=== PATIENT | female | born 1950 | race Caucasian/White ===

== ENCOUNTER → 2019-05-18 | Outpatient (CLI) | payer MEDICARE, BC ==
--- NOTE | 2019-05-18 19:26 | BD ---
EXAMINATION TYPE: Axial Bone Density DATE OF EXAM: 05/18/2019 COMPARISON: NONE CLINICAL HISTORY: 68-year-old female postmenopausal screening Height: 62.5 Weight: 129 FRAX RISK QUESTIONS: Alcohol (3 or more units per day): no Family History (Parent hip fracture): no Glucocorticoids (More than 3mos): no (Ex: prednisone, prednisolone, methylprednisolone, dexamethasone, and hydrocortisone). History of Fracture in Adulthood: no Secondary Osteoporosis: 1. Type 1 Diabetes: no 2. Hyperthyroidism: no 3. Menopause before 45: no 4. Malnutrition: no 5. Chronic liver disease: no Rheumatoid Arthritis: no Current Tobacco Use: no RISK FACTORS HISTORY OF: Family History of Osteoporosis: no Active: yes Diet low in dairy products/other sources of calcium: no Postmenopausal woman: yes Take estrogen and/or progesterone medications: no Lost more than 2 inches in height since high school: no Frequent falls: no Poor Health: no Hyperparathyroidism: no Adrenal Insufficiency: no MEDICATIONS: Prednisone or other steroids: no Thyroid Medications: no Osteoporosis Medications: no Additional Medications: none Additional History: none to note EXAM MEASUREMENTS: Bone mineral densitometry was performed using the [employer] System. Bone mineral density as measured about the Lumbar spine is: ----- L1-L4(G/cm2): 1.035 T Score Values are as follows: ----- L2: -0.3 ----- L3: -0.5 ----- L4: -1.9 ----- L1-L4: -1.2 Bone mineral density not previously done at this facility; done elsewhere Bone mineral density about the R hip (g/cm2): 0.786 Bone mineral density about the L hip (g/cm2): 0.751 T Score values are as follows: -----R Neck: -1.8 -----L Neck: -2.1 -----R Total: -1.4 -----L Total: -1.7 Bone mineral density not previously done at this facility, done elsewhere IMPRESSION: Osteopenia (T Score between -2.5 and -1). There is slightly increased risk of fracture and the patient may be considered for treatment. Re-Screen 2-5 years. NOTE: T-SCORE=SD OF THE YOUNG ADULT MEAN.
--- NOTE | 2019-05-19 11:24 | MM ---
Reason for exam: screening (asymptomatic). Last mammogram was performed 3 years and 11 months ago. History: Family history of breast cancer in paternal aunt at age 50. Benign cyst aspiration of the left breast, 1972. Physical Findings: A clinical breast exam by your physician is recommended on an annual basis and results should be correlated with mammographic findings. MG 3D Screening Mammo W/Cad Bilateral CC and MLO view(s) were taken. Prior study comparison: June 17, 2015, mammogram, performed at [facility]. April 15, 2014, mammogram, performed at [facility]. The breast tissue is heterogeneously dense. This may lower the sensitivity of mammography. Finding: There are typically benign dystrophic calcifications in the right breast. There is a chronic nodularity in the right breast. There is no discrete abnormality. ASSESSMENT: Benign, BI-RAD 2 RECOMMENDATION: Routine screening mammogram of both breasts in 1 year.
== END | disposition home or self-care (01) ==
LOC: RADMAMWWP 06:57
PROVIDERS: ATTEND Family Medicine
DX: Z12.31 Encounter for screening mammogram for malignant neoplasm of breast (principal); M85.80 Other specified disorders of bone density and structure, unspecified site; Z78.0 Asymptomatic menopausal state; Z13.820 Encounter for screening for osteoporosis
CPT/HCPCS: 77063; 77067; 77080

== ENCOUNTER → 2019-06-04 | Outpatient (CLI) | payer MEDICARE, BC ==
--- NOTE | 2019-06-04 14:44 | CT ---
EXAMINATION TYPE: CT abdomen pelvis wo/w con DATE OF EXAM: 06/04/2019 COMPARISON: 04/03/2016 HISTORY: 68-year-old female Gross hematuria TECHNIQUE: Contiguous axial scanning of the abdomen and pelvis before and after administration of 100 ml Isovue 300 IV contrast. Delayed images through the kidneys and coronal/sagittal reconstructions performed. CT DLP: 1458 mGycm Automated exposure control for dose reduction was used. FINDINGS: Heart normal size without pericardial effusion. Lung bases clear without pleural effusion. Mild circumferential wall thickening distal esophagus. Subcentimeter hypodensity anterior mid liver and also peripheral left liver lobe too small for accura te CT characterization, likely cysts. Portal venous system is patent. Mildly dilated bile duct at 1 cm likely secondary to postcholecystectomy status. Mild diffuse thickening of the left adrenal gland without discrete nodularity, unchanged from prior. 7 mm subcentimeter cortical hypodensity lateral right kidney and 5 mm tiny hypodensity posterior uppe r pole left kidney. Both too small fracture CT characterization, probable tiny cysts. Punctate 2 mm nonobstructive right upper to midpole renal calculus. At the left UPJ, there is a 5 mm calcification not seen previously. The delayed kidney images show sa tisfactory contrast passage into the ureter. No dilated small bowel, free fluid, or free air. No mesenteric or retroperitoneal lymphadenopathy. Appendix not seen. Scattered moderate stool. Oral contrast progressed to the hepatic flexure. No cody colonic inflammatory change. Bladder partially distended. Uterus surgically absent. Ovaries are visualized with a 9 mm cyst in the right ovary. Multiple pelvic phleboliths. Bones: Mild degenerative changes at the hips. Facet arthropathy mid to lower lumbar spine with associ ated degenerative disc disease. IMPRESSION: 1. 5 MM LEFT UPJ CALCULUS. No significant obstructive uropathy at this time. 2. Additional punctate 2 mm nonobstructive right-sided renal calculus. 3. Mild circumferential wall thickening distal esophagus may be secondary to nondistention or esophag itis. Clinically correlate. 4. Moderate stool burden.
== END | disposition home or self-care (01) ==
LOC: RADCTMAIN 12:27
PROVIDERS: ATTEND Family Medicine
DX: N20.1 Calculus of ureter (principal); N20.0 Calculus of kidney; K22.8 Other specified diseases of esophagus; R31.0 Gross hematuria
CPT/HCPCS: 82565; 84520; 74178; 36415; Q9967

== ENCOUNTER → 2019-08-11 | Outpatient (CLI) | payer MEDICARE, BC ==
--- NOTE | 2019-08-11 08:13 | US ---
EXAMINATION TYPE: US kidneys/renal and bladder DATE OF EXAM: 08/11/2019 COMPARISON: Noncontrast CT 06/04/2019 CLINICAL HISTORY: N20.0 Calculus of kidney. Hx renal stones. EXAM MEASUREMENTS: Right Kidney: 8.4 x 4.7 x 4.0 cm Left Kidney: 8.0 x 4.9 x 5.0 cm Right Kidney: Lateral hypoechoic appearing lesion in renal cortex- 0.8 x 0.6 x 0.6 cm . Tiny punctate right renal calcification with no obstruction. Left Kidney: Hydronephrosis visualized Bladder: distended, anechoic Right jet seen . IMPRESSION: 1. Moderate left hydronephrosis. 2. Hypoechoic nodule right kidney too small to characterize but statistically most likely related to a cyst. 3. Tiny nonobstructing right renal calculus.
== END | disposition home or self-care (01) ==
LOC: RADUSWWP 07:25
PROVIDERS: ATTEND Surgery
DX: N13.30 Unspecified hydronephrosis (principal); N28.89 Other specified disorders of kidney and ureter; N20.0 Calculus of kidney
CPT/HCPCS: 74018; 76770

== ENCOUNTER → 2019-08-11 | Outpatient (CLI) | payer MEDICARE, BC ==
--- NOTE | 2019-08-11 08:31 | XR ---
KUB HISTORY: Status post lithotripsy, left-sided kidney stone Frontal KUB and [address] 06/04/2019 Suspect there is a calcification at the level of the L3 transverse process showing a cephalad to caud al dimension of 7 mm. There is an underlying scoliosis, degenerative disc change in the visualized sp ine. Multiple phleboliths are present within the pelvis. Difficult to exclude a distal ureteral calcu lester. No evident pneumoperitoneum or bowel obstruction. There is overlying artifact. IMPRESSION: There may be left ureteral calculus as described.
== END | disposition home or self-care (01) ==
LOC: RADXRMAIN 07:20
PROVIDERS: ATTEND Surgery
DX: N20.0 Calculus of kidney (principal); Z98.890 Other specified postprocedural states
CPT/HCPCS: 74018

== ENCOUNTER → 2020-09-09 | Outpatient (CLI) | payer MEDICARE, BC ==
--- NOTE | 2020-09-12 09:43 | MM ---
Reason for exam: screening (asymptomatic). Last mammogram was performed 1 year and 4 months ago. History: Family history of breast cancer in paternal aunt at age 50. Benign cyst aspiration of the left breast, 1972. Physical Findings: A clinical breast exam by your physician is recommended on an annual basis and results should be correlated with mammographic findings. MG 3D Screening Mammo W/Cad Bilateral CC and MLO view(s) were taken. Prior study comparison: May 18, 2019, bilateral MG 3d screening mammo w/cad. June 17, 2015, mammogram, performed at [facility]. The breast tissue is heterogeneously dense. This may lower the sensitivity of mammography. Finding #1: There is a 6 mm circumscribed oval mass located 7 cm from the nipple in the lower quadrant, middle position of the right breast. Finding #2: There are typically benign round calcifications in the anterior position of the left breast. New finding since May 18, 2019 and June 17, 2015. ASSESSMENT: Incomplete: need additional imaging evaluation, BI-RAD 0 RECOMMENDATION: Ultrasound of the right breast. [facility] will attempt to contact patient to return for ultrasound.
== END | disposition home or self-care (01) ==
LOC: RADMAMWWP 08:07
PROVIDERS: ATTEND Family Medicine
DX: Z12.31 Encounter for screening mammogram for malignant neoplasm of breast (principal)
CPT/HCPCS: 77063; 77067

== ENCOUNTER → 2020-09-15 | Outpatient (CLI) | payer MEDICARE, BC ==
--- NOTE | 2020-09-15 09:31 | USB ---
Reason for exam: additional evaluation requested from abnormal screening. History: Family history of breast cancer in paternal aunt at age 50. Benign cyst aspiration of the left breast, 1972. Benign excisional biopsy of the left breast. Physical Findings: Nurse did not find any significant physical abnormalities on exam. US Breast Workup Limited RT Right limited breast ultrasound including focal area of concern, retroareolar and axilla demonstrates a 5 x 3 x 5mm oval, lobular, cystic lesion at 8 o'clock and dilated duct at the posterior nipple. These results were verbally communicated with the patient and result sheet given to the patient on 09/15/20. ASSESSMENT: Benign, BI-RAD 2 RECOMMENDATION: Return to routine screening mammogram schedule for both breasts.
== END | disposition home or self-care (01) ==
LOC: RADUSWWP 07:21
PROVIDERS: ATTEND Family Medicine
DX: R92.8 Other abnormal and inconclusive findings on diagnostic imaging of breast (principal)

== ENCOUNTER → 2021-10-06 | Outpatient (CLI) | payer MEDICARE, BC ==
--- NOTE | 2021-10-10 09:05 | MM ---
Reason for exam: screening (asymptomatic). Last mammogram was performed 1 year and 1 month ago. History: Patient is postmenopausal. Family history of breast cancer in paternal aunt at age 50. Benign cyst aspiration of the left breast, 1972. Benign excisional biopsy of the left breast. Physical Findings: A clinical breast exam by your physician is recommended on an annual basis and results should be correlated with mammographic findings. MG 3D Screening Mammo W/Cad Bilateral CC and MLO view(s) were taken. XCCL view(s) were taken of the right breast. Prior study comparison: September 09, 2020, bilateral MG 3d screening mammo w/cad. May 18, 2019, bilateral MG 3d screening mammo w/cad. There are scattered fibroglandular densities. Stable superior left MLO asymmetric density. No significant changes when compared with prior studies. ASSESSMENT: Benign, BI-RAD 2 RECOMMENDATION: Routine screening mammogram of both breasts in 1 year.
== END | disposition home or self-care (01) ==
LOC: RADMAMWWP 12:23
PROVIDERS: ATTEND Family Medicine
DX: Z12.31 Encounter for screening mammogram for malignant neoplasm of breast (principal); Z78.0 Asymptomatic menopausal state; Z80.3 Family history of malignant neoplasm of breast
CPT/HCPCS: 77063; 77067

== ENCOUNTER → 2023-11-11 | Outpatient (CLI) | payer MEDICARE, BC ==
--- NOTE | 2023-11-11 16:18 | BD ---
EXAMINATION TYPE: Axial Bone Density DATE OF EXAM: 11/11/2023 CLINICAL HISTORY: 73 years old Female. ICD-10 CODE: Z78.0 ASYMPTOMATIC MENOPAUSAL STA Height: 62in Weight: 112lb FRAX RISK QUESTIONS: History of Fracture in Adulthood: yes Secondary Osteoporosis: RISK FACTORS HISTORY OF: MEDICATIONS: EXAM MEASUREMENTS: Bone mineral densitometry was performed using the [employer] System. Bone mineral density as measured about the Lumbar spine is: ----- L1-L4(G/cm2): 1.056 T Score Values are as follows: ----- L1: -2.4 ----- L2: -1.3 ----- L3: -0.3 ----- L4: -0.5 ----- L1-L4: -1.0 Z Score Values are as follows: ----- L1: -0.2 ----- L2: 0.9 ----- L3: 1.9 ----- L4: 1.7 ----- L1-L4: 1.2 Bone mineral density has: Increased 2% since study of: 05-18-19 Bone mineral density about the R hip (g/cm2): 0.771 Bone mineral density about the L hip (g/cm2): 0.715 T Score values are as follows: -----R Neck: -2.3 -----L Neck: -2.2 -----R Total: -1.9 -----L Total: -2.3 Z Score values are as follows: -----R Neck: -0.1 -----L Neck: -0.1 -----R Total: 0.1 -----L Total: -0.4 Bone mineral density has: Decreased -9.1% since study of: 05-18-19 FRAX%s: The graph provided illustrates a 19.3% chance for a major osteoporotic fx and a 5.1% chance f or the hips probability for fx in 10 years time. IMPRESSION: Osteopenia (T Score between -2.5 and -1). There is slightly increased risk of fracture and the patient may be considered for treatment. Re-Screen 2-5 years. NOTE: T-SCORE=SD OF THE YOUNG ADULT MEAN.
--- NOTE | 2023-11-13 07:46 | MM ---
Reason for Exam: Screening (asymptomatic). Last mammogram was performed 2 year(s) and 1 month(s) ago. Patient History: Menarche at age 16. First Full-Term at age 18. Hysterectomy at age 40. Postmenopausal. 1973, Benign Cyst Aspiration on the left side. Benign Excisional Biopsy on the left side. Paternal aunt had breast cancer, age 50. Risk Values: Susan 5 year model risk: 1.4%. NCI Lifetime model risk: 3.4%. Prior Study Comparison: 09/09/2020 Bilateral Screening Mammogram, [facility]. 10/06/2021 Bilateral Screening Mammogram, [facility]. 10/10/2022 Right MG 3D diag mammo w/cad RT, [facility]. Tissue Density: There are scattered areas of fibroglandular density. Findings: Analyzed By CAD. Chronic nodularity on the right. There is no suspicious group of microcalcifications or new suspicious mass in either breast. Overall Assessment: Benign, BI-RAD 2 Management: Screening Mammogram of both breasts in 1 year. . Patient should continue monthly self-breast exams. A clinical breast exam by your physician is recommended on an annual basis. This exam should not preclude additional follow-up of suspicious palpable abnormalities. Note on Susan scores and lifetime risk: 1. A Susan score greater than 3% is considered moderate risk. If this is the case, consider specialist referral to assess eligibility for a risk reducing agent. 2. If overall lifetime risk for the development of breast cancer is 20% or higher, the patient may qualify for future screening with alternating mammogram and breast MRI. Electronically signed and approved by: Prudence Frost M.D. Radiologist
== END | disposition home or self-care (01) ==
LOC: RADMAMWWP 09:55
PROVIDERS: ATTEND Family Medicine
DX: Z12.31 Encounter for screening mammogram for malignant neoplasm of breast (principal); M85.89 Other specified disorders of bone density and structure, multiple sites; Z78.0 Asymptomatic menopausal state; Z80.3 Family history of malignant neoplasm of breast
CPT/HCPCS: 77063; 77067; 77080

== ENCOUNTER → 2024-08-17 | Outpatient (CLI) | payer MEDICARE, BC | END | disposition home or self-care (01) | LOC: LABWHC1 09:20 | PROVIDERS: ATTEND Optometrist | DX: M31.6 Other giant cell arteritis (principal) | CPT/HCPCS: 36415; 85652; 86140 ==

== ENCOUNTER → 2024-08-18 | Outpatient (CLI) | payer MEDICARE, BC ==
[2024-08-18 13:04] LABS: African American GFR (CKD) 63 (>60 ml/min/1.73 sqM); Blood Urea Nitrogen 23 mg/dL (7-17); Non-African American GFR(CKD) 55 (>60 ml/min/1.73 sqM)
--- NOTE | 2024-08-18 14:16 | CT ---
EXAMINATION TYPE: CT brain wo/w con CT DLP: 2128.6 mGycm, Automated exposure control for dose reduction was used. DATE OF EXAM: 08/18/2024 1:32 PM COMPARISON: None. 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 States seeing "moreno matter" in center of vision, peripheral vision see ms fine. TECHNIQUE: Axial CT images of the brain were obtained followed by contrast enhanced axial images of t he brain with 100 cc of ISO-view 370 IV contrast. One or more CT dose reduction strategies were utili zed during this examination. Coronal and sagittal reformats reviewed. FINDINGS: Extra-axial spaces: No abnormal extra-axial fluid collections. Suprasellar cistern appears unremarkab le. Ventricular system: Within normal limits Cerebral parenchyma: No acute intraparenchymal hemorrhage or mass effect. The trujillo-white junction is well differentiated. Scattered hypoattenuating areas are seen within the periventricular white matte r. No abnormal enhancement is seen after the administration of intravenous contrast. Cerebellum: Unremarkable. Mass effect: No evidence of midline shift. Intracranial vasculature: Atherosclerotic calcifications of the intracranial vessels. Soft tissues: Normal. Calvarium/osseous structures: No depressed skull fracture. Paranasal sinuses and mastoid air cells: Clear. Visualized orbits: Right aphakia IMPRESSION: 1. No acute intracranial process and no evidence to suggest intracranial mass. 2. Nonspecific white matter changes, likely secondary to chronic small vessel ischemic disease. [facility], , 08/18/2024 2:14 PM
== END | disposition home or self-care (01) ==
LOC: RADCTMAIN 12:13
PROVIDERS: ATTEND Ophthalmology
DX: M31.6 Other giant cell arteritis (principal); R90.82 White matter disease, unspecified
CPT/HCPCS: 82565; 84520; 70470; 36415; Q9967